=== PATIENT | female | born 1945 | race Caucasian/White ===

== ENCOUNTER 2016-07-06 05:00 | Day surgery (SDC) | payer MEDICARE ==
[~2016-07-06] VITALS: Ht 142.2 cm; Wt 63.0 kg
[~2016-07-06 05:00] MED LIST: ALDACTONE50 MG PO; CARBIDOPA-LEVO1 EAC2 PO; CHOLESTYRAMIN4 G/PK1 PO; DICLOFENAC SODI50 MG PO; EZFE 200200 MG PO; LASIX20 MG PO; MAGNESIUM OXID250 MG PO; NORCO 7.5/325 T1 TA1 PO; OMEPRAZOLE20 M1 PO; PHENERGAN25 M1 PO; XYZAL5 MG PO; ZANTAC300 MG PO; ZOFRAN4 MG PO; [UNRECOGNIZED DRUG - OTHER]
[2016-07-06 05:41] VITALS: Ht 142.2 cm; Wt 63.0 kg
[2016-07-06 05:53] LABS: BASOPHILS 0.3 % (0.0-2.0); HEMATOCRIT 31.4 % (36.0-48.0); HEMOGLOBIN 9.9 g/dL (12-16); LYMPHOCYTES 32.6 % (15-50); MCH 29.2 pg (26.0-34.0); MCHC 31.5 g/dL (31.0-37.0); MCV 92.6 fL (80.0-100.0); MEAN PLATELET VOLUME 10.2 fL (7.4-10.4); MONOCYTES 9.6 % (2-11); NEUTROPHILS 55.5 % (40-80); PLATELET COUNT 143 10x3/uL (130-400); RBC 3.39 10x6/uL (4.00-5.40); WBC 3.4 10x3/uL (4.8-10.8)
[2016-07-06 06:05] LABS: APTT 28.2 SECONDS (22.8-39.4); INR 1.04 (0.85-1.17); PROTIME 13.5 SECONDS (11.6-15.0)
[2016-07-06 06:08] LABS: ANION GAP 15.4 mmol/L (8-16); CALCIUM 9.5 mg/dL (8.5-10.1); POTASSIUM - SERUM 4.4 mmol/L (3.5-5.1)
[2016-07-06] MEDS ORDERED: NORCO 7.5/325 T1 TA1 PO (07:30)
--- NOTE | 2016-07-06 07:52 | NUR ---
0735-RECD TO ROOM FROM SURGERY. ALERT. IV PATENT. RESP WITH EASE. DENIES PAIN/NAUSEA.
--- NOTE | 2016-07-06 08:42 | NUR ---
IV DC WITH CATHER TIP INTACT
--- NOTE | 2016-07-12 08:03 | OP ---
PATIENT NAME: XIOMY BLANCHARD MEDICAL RECORD: [id number] :47 LOCATION:D.OPS ADMISSION DATE: SURGEON: MERYL NEWSOME MD DATE OF OPERATION: 07/06/2016 PREOPERATIVE DIAGNOSIS: 1. Left thumb. 2. Left middle finger and left ring finger. 3. Trigger fingers. POSTOPERATIVE DIAGNOSES: 1. Left thumb. 2. Left middle finger and left ring finger. 3. Trigger fingers. PROCEDURE PERFORMED: Left thumb, left middle finger, left ring finger trigger releases. SURGEON: Robert Newsome MD ANESTHESIA: TIVA with local. CONDITION: She tolerated the procedure well, was transferred to recovery room in stable condition. INDICATIONS: This is a pleasant 71-year-old female with triggering of these 3 digits. This has been bothering her. She presents wanting to have the ____ release. We discussed risks, benefits and alternatives including reoccurrence, infection, blood loss, she understood and wished to proceed. OPERATIVE REPORT: The patient was taken to the operating room and placed in supine position. TIVA anesthesia was obtained. Left hand was confirmed to be the correct hand. It was prepped and draped in normal fashion. Small transverse incisions were made at the base of each digit. The skin was cut with a knife. Deep dissection was done with just spreading with a hemostat. Retractors were placed medially and laterally to protect the nerves. I then identified the proximal kyree. This was split in line with the tendon. I visualized both proximal and distal to verify that the tendon sheath was released. I then proceeded to irrigate and then closed with interrupted 3-0 Prolene. She tolerated this well, was awakened and transferred back to outpatient surgery in stable condition. We will proceed from this juncture. TRANSINT:[id number] Voice Confirmation ID: [id number] DOCUMENT ID: [id number] MERYL NEWSOME MD at [id number] CC: [id number] DICTATION DATE: 07/06/16 0734 NURSE ORTHOPEDIC: 07/06/16 0816 [facility] 07/06/16 [place] [address]
== END 2016-07-06 09:00 | disposition home or self-care (01) ==
LOC: D.OPS 05:00 → D.PAN 07:00 → D.OPS 09:00
PROVIDERS: Anesthesiology
DX: M65.312 Trigger thumb, left thumb (principal); M65.332 Trigger finger, left middle finger; M65.342 Trigger finger, left ring finger

== ENCOUNTER → 2016-10-29 16:33 | Outpatient (CLI) | payer MEDICARE ==
[2016-07-06 05:41] VITALS: BMI 31.2
== END | disposition home or self-care (01) ==
LOC: D.US 16:33
DX: M79.601 Pain in right arm (principal); R60.0 Localized edema

== ENCOUNTER → 2016-11-08 13:28 | Outpatient (CLI) | payer MEDICARE ==
[2016-07-06 05:41] VITALS: BMI 31.2
== END | disposition home or self-care (01) ==
LOC: D.MRI 13:00
DX: M79.641 Pain in right hand (principal)

== ENCOUNTER → 2016-11-15 14:54 | Outpatient (CLI) | payer MEDICARE ==
[2016-07-06 05:41] VITALS: BMI 31.2
[2016-11-15 16:57] LABS: BASOPHILS 0.1 % (0-2); EOSINOPHILS 0.9 % (0-7); HEMATOCRIT 35.3 % (36.0-48.0); HEMOGLOBIN 11.5 g/dL (12-16); IMMATURE GRANULOCYTES 0.1 % (0-5); LYMPHOCYTES 22.3 % (15-50); MCH 29.3 pg (26.0-34.0); MCHC 32.6 g/dL (31.0-37.0); MCV 90.1 fL (80.0-100.0); MEAN PLATELET VOLUME 9.5 fL (7.4-10.4); MONOCYTES 6.7 % (2-11); NEUTROPHILS 69.9 % (40-80); RBC 3.92 10x6/uL (4.00-5.40); RDW 13.2 % (11.5-14.5)
[2016-11-15 17:02] LABS: PLATELET COUNT 214 10x3/uL (130-400)
[2016-11-15 17:10] LABS: URIC ACID 5.3 mg/dL (2.6-7.2)
[2016-11-15 17:57] LABS: ERYTHROCYTE SEDIMENTATION RATE 35 mm/hr (0-30)
== END | disposition home or self-care (01) ==
LOC: D.LAB 14:54
PROVIDERS: Orthopaedic Surgery Hand Surgery
DX: M18.11 Unilateral primary osteoarthritis of first carpometacarpal joint, right hand (principal)

== ENCOUNTER → 2017-05-16 13:14 | Outpatient (CLI) | payer MEDICARE ==
[2016-07-06 05:41] VITALS: BMI 31.2
== END | disposition home or self-care (01) ==
LOC: D.RAD 13:00
DX: R13.12 Dysphagia, oropharyngeal phase (principal)

== ENCOUNTER → 2017-06-10 09:40 | Outpatient (CLI) | payer MEDICARE ==
[2016-07-06 05:41] VITALS: BMI 31.2
== END | disposition home or self-care (01) ==
LOC: D.MRI 09:40
DX: M25.512 Pain in left shoulder (principal); M25.511 Pain in right shoulder

== ENCOUNTER → 2017-09-09 17:52 | Emergency (ER) | payer MEDICARE ==
[2016-07-06 05:41] VITALS: BMI 31.2
== END ==
LOC: D.ER 17:52
DX: M25.412 Effusion, left shoulder (principal); M25.512 Pain in left shoulder

== ENCOUNTER → 2017-09-13 10:00 | Outpatient (CLI) | payer MEDICARE ==
[2016-07-06 05:41] VITALS: BMI 31.2
== END | disposition home or self-care (01) ==
LOC: D.MRI 10:00
DX: S46.212A Strain of muscle, fascia and tendon of other parts of biceps, left arm, initial encounter (principal); X58.XXXA Exposure to other specified factors, initial encounter; Y93.89 Activity, other specified; Y92.89 Other specified places as the place of occurrence of the external cause

== ENCOUNTER → 2018-01-31 08:22 | Outpatient (CLI) | payer MEDICARE ==
[2016-07-06 05:41] VITALS: BMI 31.2
== END | disposition home or self-care (01) ==
LOC: D.CT 08:22
DX: R60.0 Localized edema (principal)

== ENCOUNTER → 2020-11-15 15:39 | Outpatient (CLI) | payer MEDICARE ==
[2016-07-06 05:41] VITALS: BMI 31.2
== END | disposition home or self-care (01) ==
LOC: D.MRI 15:39
PROVIDERS: ATTEND Family Medicine
DX: M54.41 Lumbago with sciatica, right side (principal)